=== PATIENT | female | born 1965 | race African-American/Black ===

== ENCOUNTER 2018-03-07 12:07 | Emergency (ER) | payer MEDICAID ==
[~2018-03-07] VITALS: Ht 165.1 cm; Wt 97.1 kg
[2018-03-07] MEDS ORDERED: CEFTRIAXONE SODIUM 1 G/VIAL IM ONE (15:45)
[2018-03-07] MEDS ORDERED: IBUPROFEN 600MG TABLET PO ONE (15:45)
[2018-03-07] MEDS ORDERED: LIDOCAINE HCL/PF 1% 10 MG/ML 5ML VIAL IJ SCH (16:42)
[2018-03-07] MEDS ORDERED: LIDOCAINE HCL 1% 20ML VIAL (Pyxis) INJ INFIL ONE (16:45)
[2018-03-07 17:37] VITALS: BP 121/85
== END 2018-03-07 17:47 | disposition home or self-care (01) ==
LOC: ER 12:07
DX: L03.114 Cellulitis of left upper limb (principal); F17.200 Nicotine dependence, unspecified, uncomplicated; F12.10 Cannabis abuse, uncomplicated
CPT/HCPCS: 81025; 96372; 99283; J0696; J3490